=== PATIENT | female | born 1990 | race Caucasian/White ===

== ENCOUNTER 2025-10-10 13:02 | Outpatient (AMB) | payer MEDICARE, MEDICAID, SELFPAY ==
[2025-10-10 13:26] VITALS: BP 141/90; PULSE 95; RESP 18; TEMP 36.8; O2SAT 98; BMI 42.7
--- NOTE | 2025-10-10 13:26 | GYNCLNT_ITS ---
Vital Signs 10/10/25 13:26 Height 1.63 m Height Method Stated Weight 113.398 kg Weight Measurement Method Standing Scale BMI 42.7 BP 141/90 H Blood Pressure Source Automatic Cuff Blood Pressure Location Left Upper Arm Position Sitting Respiration 18 Pulse 95 Pulse Source Monitor Temp 98.2 F Temp Source Oral Pulse Oximetry (%) 98 Oxygen Delivery Method Room Air Allergies/Home Meds Allergies & Medications Allergies No Known Allergies Allergy (Verified 10/10/25 13:27) Medication Reconciliation No Known Home Medications 09/21/25 [History Confirmed 10/10/25] Intake Visit Data Collection New Patient or Established: Established Patient (seen at [facility] within 3 years) Reason for Visit:: IUD Seen by Clinical Staff ONLY (RN/MA): No Trolley Collector Required: No Do You Feel Safe at Home: Yes Authorities Contacted: N/A PCP or OBGYN visit in last 3 months: Yes Date of Last PCP or OBGYN visit: 09/21/25 Hx Now: No Are you currently on any form of Control: No Pain Present Currently: No Pain Scale Used: Abdul-Shi/Numerical Pain scale:: 0 Smoking Status Smoking Status: Never smoker Immunizations Flu Vaccine in the Last 12 Months: No Flu Vaccine Exclusion Criteria: No 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 1. Little interest or pleasure in doing things: not at all 2. Feeling down, depressed, or hopeless: not at all Total score: 0 PHQ-9 3. Trouble falling or staying asleep, or sleeping too much: Not at all 4. Feeling tired or having little energy: Not at all 5. Poor appetite or overeating: Not at all 6. Feeling bad about yourself - or that you are a failure or have let yourself or your family down: Not at all 7. Trouble concentrating on things, such as reading the newspaper or watching television: Not at all 8. Moving or speaking so slowly that other people could have noticed? - Or the opposite - being so fidgety or restless that you have been moving around a lot more than usual: not at all 9. Thoughts that you would be better off or of hurting yourself in some way: Not at all Total score: 0 If you checked off any problems, how difficult have these problems made it for you to do your work, take care of things at home, or get along with other people?: not difficult at all Source: Developed by Drs. Kirt Holt, Ann Raines, Yeison Musa and colleagues, with an educational bud from [employer]. Depression screen completed yes Social History Living Situation History Marital Status: Single Lives With: Family Housing: House Tobacco History Smoking Status: Never smoker Second Hand Smoke Exposure: No Alcohol History Alcohol Intake: Never Domestic Abuse History Do You Feel Safe at Home: Yes History of Present Illness HPI Narrative 35-year-old 1 para 1 for Mirena insertion. Patient's previous x 1 no other pregnancies. History of heavy menses. Her last period was September 03, 2025. History of irregular menses for the last year or 2. 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 She also has a history of high cholesterol and neuropathy and other health issues that she sees primary care at [facility]. Denies social habits. Patient used Mirena before and liked it. She is not sexually active and she is using the Mirena to stop her periods Review of Systems Review of Systems Systems Reviewed: All systems reviewed, normal except as documented Exam Narrative Physical exam: Perineum clean no lesions. Vagina pink no unusual discharge. Small amount of old blood. Cervix was visualized. No inflammation os is open. I put the tenaculum the cervix after the speculum was placed. And then I used Betadine to clean off the cervix x 2. Sounded to 7 cm. And the Mirena was inserted using applicator. No bleeding noted and patient did well General Limitations: no limitations General Appearance: alert, in no apparent distress, comfortable, cooperative, healthy appearing, well developed and well groomed Head Head exam: atraumatic, normocephalic and normal inspection ENT ENT exam: Present normal exam, normal oropharynx and mucous membranes moist Neck Neck exam: Present normal inspection, full ROM and trachea midline Chest Chest inspection: Present normal inspection and symmetric chest wall rise Resp Respiratory exam: Present normal lung sounds bilaterally Psych Psychiatric exam: Present normal affect and normal mood Results Objective Laboratory: neg preg test Office Procedures [facility] LOC & Office Proc's Nursing/Assessment Patient Status: Established Patient OB Clinic Nursing Assessment: Medication Reconciliation, Update PMH in EMR and Vital Signs OB Clinic Coordination of Care: Consent,records obtained, informed consent, Education Simp Pt/Fam, Lab and Imaging orders, Results/Orders obtained and Staff clarify orders Established Patient Charge Established Patient Point Assignment: 80 Established Patient Point Charge: EP Level 3 (80-115) Assessment & Plan Diagnosis / Problem List (1) Presence of Mirena IUD: Status: Acute (2) Encounter for insertion of Mirena IUD: Status: Acute Plan Consent for Mirena insert. Reviewed method and side effects. And I discussed insertion procedure. Discussed string check q. months. No sex for 3 days. And condoms for 2 weeks. Discussed danger signs and symptoms and signs of expulsion. Will return in 4 weeks for follow-up Additional Plan Follow Up: 6 Weeks (IUD check) FAMILY SERVICE AIDE: BC insert/removal Procedure Notes Consent obtained: yes-verbal and yes-written Pre-op diagnosis general: IUD insert Post-op diagnosis procedure note: Same IUD type inserted: Mirena IUD Lot and Exp: Lot#: [id number] Expiration date: 04/10 Procedure Notes:: Timeout per protocol. Negative test. Patient put in dorssal lithotomy. Speculum was inserted. And cervix identified and then cleaned x 3 with Betadine. Then the tenaculum was placed behind the face and the cervix and patient sounded to 7 cm. Uterus was midposition. The Mirena IUD was then inserted using applicator. An strings were trimmed to 3 cm. And no bleeding noted. Patient tolerated well no dizziness no complaints of pain
== END 2025-10-10 14:20 | disposition home or self-care (01) ==
LOC: HODSOBC 13:02
PROVIDERS: Supervising Provider Advanced Practice Midwife; Visit Provider Advanced Practice Midwife
DX: Z30.430 Encounter for insertion of intrauterine contraceptive device (principal); E78.00 Pure hypercholesterolemia, unspecified; E11.40 Type 2 diabetes mellitus with diabetic neuropathy, unspecified; Z32.02 Encounter for pregnancy test, result negative; Z89.612 Acquired absence of left leg above knee; Z79.4 Long term (current) use of insulin
CPT/HCPCS: 58300; 99213; J7298; G0463